=== PATIENT | male | born 1935 | race African-American/Black ===

== ENCOUNTER 2016-07-16 11:58 | Emergency (ER) | payer MEDICARE ==
[~2016-07-16] VITALS: Ht 172.7 cm; Wt 93.2 kg
[2016-07-16 12:22] LABS: GLUCOSE,POINT OF CARE 170 MG/DL (70-110)
[2016-07-16 12:52] LABS: BASOPHILS % (AUTO) 0.7 % (0.0-2.0); EOSINOPHILS % (AUTO) 6.9 % (1.0-6.0); HEMATOCRIT 34.6 % (41-53); HEMOGLOBIN 11.4 g/dL (13.5-17.5); LYMPHOCYTES # (AUTO) 2.1 K/uL (1.0-4.8); LYMPHOCYTES % (AUTO) 25.9 % (22.0-44.0); MEAN CORPUSCULAR HEMOGLOBIN 28.6 pg (26.0-34.0); MEAN CORPUSCULAR VOLUME 87 fL (80-100); MONOCYTES # (AUTO) 0.7 K/uL (0.1-1.0); MONOCYTES % (AUTO) 8.6 % (2.0-9.0); NEUTROPHILS # (AUTO) 4.8 K/uL (1.8-7.7); NEUTROPHILS % (AUTO) 57.9 % (40.0-70.0); PLATELET COUNT (AUTO) 186 K/uL (150-450); RED BLOOD CELL COUNT(AUTO) 3.99 MIL/uL (4.50-5.90); RED CELL DISTRIBUTION WIDTH 16.3 % (11.5-14.5); WHITE BLOOD COUNT (AUTO) 8.3 K/uL (4.5-11.0)
[2016-07-16 13:03] LABS: ANION GAP 10 mmol/L (8-16); CALCIUM, TOTAL 9.2 mg/dL (8.8-10.5); CARBON DIOXIDE 28 mmol/L (22-29); CHLORIDE 102 mmol/L (98-107); CREATININE 1.18 mg/dL (0.60-1.30); GLOMERULAR FILTR. RATE CALC > 60 mL/min (>60); POTASSIUM 3.9 mmol/L (3.5-5.1); SODIUM SERUM 140 mmol/L (136-145); UREA NITROGEN, BLOOD 14 mg/dL (7-18)
[2016-07-16 13:18] LABS: B-TYPE NATRIURETIC PEPTIDE 317 pg/mL (0-100)
[2016-07-16 13:24] LABS: ADD UA MICROSCOPIC NO; APPEARANCE,URINE CLEAR (CLEAR); GLUCOSE, URINE (UA) NEGATIVE (NEGATIVE); KETONES,URINE NEGATIVE (NEGATIVE); LEUKOCYTE ESTERASE ,URINE NEGATIVE (NEGATIVE); OCCULT BLOOD,URINE NEGATIVE (NEGATIVE); PROTEIN,URINE NEGATIVE (NEGATIVE)
[2016-07-16 13:33] LABS: ALANINE AMINOTRANSFERASE 33 U/L (12-78); ALBUMIN 3.3 g/dL (3.4-5.0); ASPARTATE AMINOTRANSFERASE 20 U/L (15-37); BILIRUBIN,TOTAL 0.3 mg/dL (0.1-1.0); CREATINE KINASE MB 0.9 ng/mL (0-5); CREATINE KINASE, TOTAL 87 U/L (39-308)
[2016-07-16 15:53] VITALS: BP 139/90
== END 2016-07-16 16:07 | disposition home or self-care (01) ==
LOC: EMS 12:00
DX: M62.81 Muscle weakness (generalized) (principal); D64.9 Anemia, unspecified; M48.06 Spinal stenosis, lumbar region; M47.896 Other spondylosis, lumbar region; E11.9 Type 2 diabetes mellitus without complications; I10 Essential (primary) hypertension
CPT/HCPCS: 70450; 72131; 82962; 93005; 99291

== ENCOUNTER 2016-11-30 00:01 | Inpatient (IN) | payer MEDICARE ==
[~2016-11-30] VITALS: Ht 175.3 cm; Wt 94.1 kg
[2016-11-30 00:20] LABS: BASOPHILS % (AUTO) 1.1 % (0.0-2.0); EOSINOPHILS % (AUTO) 2.5 % (1.0-6.0); HEMATOCRIT 41.9 % (41-53); HEMOGLOBIN 14.1 g/dL (13.5-17.5); LYMPHOCYTES # (AUTO) 10.2 K/uL (1.0-4.8); LYMPHOCYTES % (AUTO) 58.8 % (22.0-44.0); MEAN CORPUSCULAR HEMOGLOBIN 29.6 pg (26.0-34.0); MEAN CORPUSCULAR HGB CONC 33.8 G/dL (31.0-37.0); MEAN CORPUSCULAR VOLUME 88 fL (80-100); MONOCYTES % (AUTO) 5.8 % (2.0-9.0); NEUTROPHILS # (AUTO) 5.5 K/uL (1.8-7.7); NEUTROPHILS % (AUTO) 31.8 % (40.0-70.0); PLATELET COUNT (AUTO) 220 K/uL (150-450); RED BLOOD CELL COUNT(AUTO) 4.78 MIL/uL (4.50-5.90); RED CELL DISTRIBUTION WIDTH 15.5 % (11.5-14.5); WHITE BLOOD COUNT (AUTO) 17.3 K/uL (4.5-11.0)
[2016-11-30 00:31] LABS: ANION GAP 12 mmol/L (8-16); CALCIUM, TOTAL 9.1 mg/dL (8.8-10.5); CARBON DIOXIDE 24 mmol/L (22-29); CHLORIDE 101 mmol/L (98-107); CREATININE 1.49 mg/dL (0.60-1.30); GLOMERULAR FILTR. RATE CALC 55 mL/min (>60); POTASSIUM 3.4 mmol/L (3.5-5.1); SODIUM SERUM 137 mmol/L (136-145); UREA NITROGEN, BLOOD 12 mg/dL (7-18)
[2016-11-30 00:33] LABS: PROTHROMBIN TIME 10.5 SEC (9.4-11.6)
[2016-11-30 00:42] LABS: LACTIC ACID 3.4 mmol/L (0.4-2.0)
[2016-11-30 00:44] LABS: B-TYPE NATRIURETIC PEPTIDE 508 pg/mL (0-100)
[2016-11-30 00:55] LABS: ALBUMIN 3.6 g/dL (3.4-5.0); BILIRUBIN,TOTAL 0.6 mg/dL (0.1-1.0); CREATINE KINASE MB 2.1 ng/mL (0-5); CREATINE KINASE, TOTAL 117 U/L (39-308)
[2016-11-30] MEDS ORDERED: 0.9% SODIUM CHLORIDE 5 ML NEB SOLUTION NEB ONE (01:09)
[2016-11-30] MEDS ORDERED: IPRATROPIUM BROMIDE 0.5 MG/2.5 ML NEB SOLUTION NEB ONE (01:15)
[2016-11-30] MEDS ORDERED: POTASSIUM CHLORIDE 10% 40 MEQ/30 ML LIQUID UDCUP PO ONE (01:15)
[2016-11-30] MEDS ORDERED: FUROSEMIDE 40 MG/4 ML VIAL IVP ONE (01:15)
[2016-11-30] MEDS ORDERED: ASPIRIN 325 MG TABLET PO ONE (01:15)
[2016-11-30] MEDS ORDERED: ALBUTEROL SULFATE 5 MG/ML 20 ML NEB SOLN [BULK] NEB ONE (01:15)
[2016-11-30] MEDS ORDERED: INSULIN REGULAR, HUMAN 100 UNITS/ML IVP ONE (01:15)
[2016-11-30] MEDS ORDERED: SITA50 PO (01:22)
[2016-11-30] MEDS ORDERED: ATOR40TA28 PO (01:22)
[2016-11-30] MEDS ORDERED: METF500T4 PO (01:22)
[2016-11-30] MEDS ORDERED: HYDR25TA PO (01:22)
[2016-11-30] MEDS ORDERED: AMLO-511 PO (01:22)
[2016-11-30] MEDS ORDERED: MULT-1192 PO (01:22)
[2016-11-30] MEDS ORDERED: CARV6 PO (01:22)
[2016-11-30] MEDS ORDERED: ASPI81 PO (01:22)
[2016-11-30] MEDS ORDERED: LOSA50TA37 PO (01:22)
[2016-11-30] MEDS ORDERED: FERR-89 PO (01:22)
[2016-11-30] MEDS ORDERED: NIFE30TA98 PO (01:22)
[2016-11-30 01:43] LABS: ALANINE AMINOTRANSFERASE 24 U/L (12-78); ASPARTATE AMINOTRANSFERASE 25 U/L (15-37)
[2016-11-30 01:50] LABS: APPEARANCE,URINE CLEAR (CLEAR); GLUCOSE, URINE (UA) >=1000 mg/dL (NEGATIVE); KETONES,URINE NEGATIVE (NEGATIVE); LEUKOCYTE ESTERASE ,URINE NEGATIVE (NEGATIVE); OCCULT BLOOD,URINE TRACE (NEGATIVE); PH,URINE 5.5 (5.0-8.0); PROTEIN,URINE SEE CONFIRM (NEGATIVE)
[2016-11-30 01:54] LABS: ADD UA MICROSCOPIC YES
[2016-11-30 02:15] LABS: REFLEX LACTIC ACID? YES YES
[2016-11-30] MEDS ORDERED: 0.9% SODIUM CHLORIDE 10 ML SYRINGE IVP PRN ×2 (02:30→12:15)
[2016-11-30] MEDS ORDERED: ACETAMINOPHEN 325 MG TABLET PO PRN ×2 (02:30→12:15)
[2016-11-30] MEDS ORDERED: ONDANSETRON HCL 4 MG/2 ML VIAL IVP PRN ×2 (02:30→12:15)
[2016-11-30 02:33] LABS: RBC,URINE 0-2 /HPF (0-2); SULFOSALICYLIC ACID,URINE 1+ (Negative); WBC,URINE 0-2 /HPF (0-5)
[2016-11-30 03:14] VITALS: BP 150/72
[2016-11-30] MEDS ORDERED: PNEUMOCOCCAL VACCINE POLYVALENT 0.5 ML VIAL [PPSV23] IM ONE (04:00)
[2016-11-30 07:44] VITALS: BP 144/77
[2016-11-30] MEDS ORDERED: OXYGEN THERAPY IH SCH (08:00)
[2016-11-30 11:34] VITALS: BP 155/94
[2016-11-30] MEDS ORDERED: SitaGLIPtin PHOSPHATE 50 MG TABLET PO SCH (12:00)
[2016-11-30] MEDS ORDERED: NIFEdipine 30 MG ER TABLET PO SCH (12:00)
[2016-11-30] MEDS ORDERED: HYDROCHLOROTHIAZIDE 25 MG TABLET PO SCH (12:00)
[2016-11-30] MEDS ORDERED: MULTIVITAMINS, THERAPEUTIC TABLET PO SCH (12:00)
[2016-11-30] MEDS ORDERED: AmLODIPine BESYLATE 5 MG TABLET PO SCH (12:00)
[2016-11-30] MEDS ORDERED: LOSARTAN POTASSIUM 50 MG TABLET PO SCH (12:00)
[2016-11-30] MEDS ORDERED: ASPIRIN 81 MG CHEWABLE TABLET PO SCH (12:00)
[2016-11-30] MEDS ORDERED: CARVEDILOL 6.25 MG TABLET PO SCH (12:00)
[2016-11-30] MEDS ORDERED: FUROSEMIDE 40 MG/4 ML VIAL IVP SCH (12:15)
[2016-11-30] MEDS ORDERED: MAGNESIUM HYDROXIDE SUSPENSION 30 ML UDCUP PO PRN (12:15)
[2016-11-30] MEDS ORDERED: DOCUSATE SODIUM 100 MG CAPSULE PO SCH (12:15)
[2016-11-30] MEDS ORDERED: OxyCODONE HCL/ACETAMINOPHEN 5-325 MG TABLET PO PRN ×2 (12:15)
[2016-11-30] MEDS ORDERED: CefTRIAXone 1 GM/DEXTROSE 50 ML IV SCH (13:00)
[2016-11-30 13:21] VITALS: BP 137/72
[2016-11-30] MEDS ORDERED: SODIUM CHLORIDE 0.9% 100 ML ONE (13:24)
[2016-11-30 14:49] VITALS: BP 158/92
[2016-11-30] MEDS ORDERED: FURO40I IV (15:21)
[2016-11-30 15:28] VITALS: BP 159/90
[2016-11-30] MEDS ORDERED: CEFTR1IV IV (15:28)
[2016-11-30] MEDS ORDERED: PANT40I IV (15:28)
[2016-11-30] MEDS ORDERED: MetFORMIN HCL 500 MG TABLET PO SCH (18:00)
[2016-11-30] MEDS ORDERED: FERROUS SULFATE 325 MG EC TABLET PO SCH (18:00)
[2016-11-30] MEDS ORDERED: ATORVASTATIN CALCIUM 40 MG TABLET PO SCH (21:00)
[2016-12-01] MEDS ORDERED: PANTOPRAZOLE SODIUM 40 MG/VIAL IVP SCH (09:00)
[2016-12-01 13:57] LABS: GLUCOSE,POINT OF CARE 305 MG/DL (70-110)
[2016-12-01 13:57] LABS: GLUCOSE,POINT OF CARE 277 MG/DL (70-110)
== END 2016-11-30 15:25 | disposition short-term general hospital (02) | DRG 195 ==
LOC: EMS 00:02 → 5N 02:45
PROVIDERS: ADMIT Internal Medicine; ATTEND Internal Medicine
PROC: 5A09357 Assistance with Respiratory Ventilation, Less than 24 Consecutive Hours, Continuous Positive Airway Pressure (ICD-10-PCS; principal; 2016-11-30)
DX: J18.9 Pneumonia, unspecified organism (principal); I11.0 Hypertensive heart disease with heart failure; E11.9 Type 2 diabetes mellitus without complications; I50.9 Heart failure, unspecified; E87.6 Hypokalemia; R09.02 Hypoxemia; Z82.49 Family history of ischemic heart disease and other diseases of the circulatory system; Z86.73 Personal history of transient ischemic attack (TIA), and cerebral infarction without residual deficits; Z83.3 Family history of diabetes mellitus; Z79.84 Long term (current) use of oral hypoglycemic drugs; Z79.82 Long term (current) use of aspirin; Z91.14 Patient's other noncompliance with medication regimen
CPT/HCPCS: 82962; 83605; 87040; 90471; 93005; 94640; 94660; 96374; 99291; J0696; J1940; J7050

== ENCOUNTER 2017-02-23 00:08 | Inpatient (IN) | payer MEDICARE ==
[~2017-02-23] VITALS: Ht 182.9 cm; Wt 90.0 kg
[~2017-02-23 00:08] MED LIST: AMLO-511 PO; ASPI81 PO; ATOR40TA28 PO; CARV6 PO; CEFTR1IV IV; FERR-89 PO; FURO40I IV; HYDR25TA PO; LOSA50TA37 PO; METF500T4 PO; MULT-1192 PO; NIFE30TA98 PO; PANT40I IV; SITA50 PO
[2017-02-23] MEDS ORDERED: FUROSEMIDE 40 MG/4 ML VIAL IVP ONE ×2 (00:15→09:00)
[2017-02-23] MEDS ORDERED: NITROGLYCERIN 100 MG in DEXTROSE 5%-WATER 230 ML IV PRN (00:15)
[2017-02-23] MEDS ORDERED: NITROGLYCERIN 0.4 MG SUBLINGUAL TABLET #25 SL ONE (00:15)
[2017-02-23] MEDS ORDERED: NITROGLYCERIN 50 MG/D5% WATER 250 ML IV PRN (00:30)
[2017-02-23 00:51] LABS: HEMATOCRIT 40.1 % (41-53); HEMOGLOBIN 13.4 g/dL (13.5-17.5); MEAN CORPUSCULAR HEMOGLOBIN 29.1 pg (26.0-34.0); MEAN CORPUSCULAR HGB CONC 33.3 G/dL (31.0-37.0); MEAN CORPUSCULAR VOLUME 87 fL (80-100); PLATELET COUNT (AUTO) 214 K/uL (150-450); RED BLOOD CELL COUNT(AUTO) 4.59 MIL/uL (4.50-5.90); RED CELL DISTRIBUTION WIDTH 17.3 % (11.5-14.5)
[2017-02-23 01:06] LABS: PROTHROMBIN TIME 10.7 SEC (9.4-11.6)
[2017-02-23 01:17] LABS: LYMPHOCYTES % (MANUAL) 52 % (22-44); MONOCYTES % (MANUAL) 4 % (2-9); PLATELET MORPHOLOGY COMMENT GIANT PLTS PRESENT; SEGMENTED NEUTROPHILS % 44 % (40-70)
[2017-02-23 01:26] LABS: LACTIC ACID 5.6 mmol/L (0.4-2.0)
[2017-02-23 01:40] LABS: SODIUM SERUM 135 mmol/L (136-145)
[2017-02-23 01:41] LABS: ALKALINE PHOSPHATASE 164 U/L (46-116); ANION GAP 16 mmol/L (8-16); ASPARTATE AMINOTRANSFERASE 29 U/L (15-37); BILIRUBIN,TOTAL 0.3 mg/dL (0.1-1.0); CALCIUM, TOTAL 8.7 mg/dL (8.8-10.5); CARBON DIOXIDE 22 mmol/L (22-29); CHLORIDE 97 mmol/L (98-107); CREATININE 1.57 mg/dL (0.60-1.30); GLOMERULAR FILTR. RATE CALC 52 mL/min (>60); UREA NITROGEN, BLOOD 13 mg/dL (7-18)
[2017-02-23 01:42] LABS: ALANINE AMINOTRANSFERASE 33 U/L (12-78); ALBUMIN 3.3 g/dL (3.4-5.0); CREATINE KINASE, TOTAL 91 U/L (39-308); TOTAL PROTEIN, SERUM 8.6 g/dL (6.4-8.2)
[2017-02-23 01:43] LABS: GLUCOSE,RANDOM 462 mg/dL (70-110); POTASSIUM 2.7 mmol/L (3.5-5.1)
[2017-02-23] MEDS ORDERED: CefTRIAXone SODIUM 2 GM in DEXTROSE 5%-WATER 50 ML IV ONE (01:45)
[2017-02-23 02:46] LABS: APPEARANCE,URINE CLEAR (CLEAR); BILIRUBIN,URINE NEGATIVE (NEGATIVE); GLUCOSE, URINE (UA) >=1000 mg/dL (NEGATIVE); KETONES,URINE NEGATIVE (NEGATIVE); LEUKOCYTE ESTERASE ,URINE NEGATIVE (NEGATIVE); NITRATE,URINE NEGATIVE (NEGATIVE); OCCULT BLOOD,URINE NEGATIVE (NEGATIVE); PROTEIN,URINE TRACE (NEGATIVE); UROBILINOGEN,URINE 0.2 mg/dL (<=1.0)
[2017-02-23 02:56] LABS: BACTERIA,URINE None Seen /HPF (None Seen); RBC,URINE None Seen /HPF (0-2); WBC,URINE None Seen /HPF (0-5)
[2017-02-23] MEDS ORDERED: POTASSIUM CHLORIDE 20 MEQ ER TABLET PO ONE (03:15)
[2017-02-23] MEDS ORDERED: INSULIN REGULAR, HUMAN 100 UNITS/ML IVP ONE (03:15)
[2017-02-23 03:42] LABS: GLUCOSE,POINT OF CARE 387 MG/DL (70-110)
[2017-02-23] MEDS ORDERED: ALBUTEROL SULFATE 2.5 MG/0.5 ML NEB SOLUTION NEB PRN ×2 (04:00→10:30)
[2017-02-23] MEDS ORDERED: BISACODYL 10 MG RECTAL RECTAL SUPPOSITORY PR PRN ×2 (04:00→10:30)
[2017-02-23] MEDS ORDERED: IPRATROPIUM BROMIDE 0.5 MG/2.5 ML NEB SOLUTION NEB PRN (04:00)
[2017-02-23] MEDS ORDERED: ONDANSETRON HCL 4 MG/2 ML VIAL IVP PRN (04:00)
[2017-02-23] MEDS ORDERED: NITROGLYCERIN 2% (1 GM=INCH) PACKET TP ONE (04:00)
[2017-02-23] MEDS ORDERED: MORPHINE SULFATE 4 MG/ML SYRINGE IVP PRN (04:00)
[2017-02-23] MEDS ORDERED: ACETAMINOPHEN 325 MG TABLET PO PRN ×2 (04:00→10:30)
[2017-02-23] MEDS ORDERED: ZOLPIDEM TARTRATE 5 MG TABLET PO PRN (04:00)
[2017-02-23] MEDS ORDERED: HYDROCODONE/ACETAMINOPHEN 5-325 MG TABLET PO PRN (04:00)
[2017-02-23 05:27] LABS: GLUCOSE,POINT OF CARE 377 MG/DL (70-110)
[2017-02-23 05:51] VITALS: BP 131/76
[2017-02-23] MEDS ORDERED: POTASSIUM CHL 10 MEQ/WATER 50 ML IV PRN (06:15)
[2017-02-23 07:13] VITALS: BP 157/92
[2017-02-23 07:47] LABS: BASOPHILS # (AUTO) 0.02 K/uL (0.00-0.20); BASOPHILS % (AUTO) 0.2 % (0.0-2.0); EOSINOPHILS # (AUTO) 0.02 K/uL (0.00-0.70); EOSINOPHILS % (AUTO) 0.17 % (1.0-6.0); HEMATOCRIT 34.3 % (41-53); HEMOGLOBIN 11.4 g/dL (13.5-17.5); LYMPHOCYTES # (AUTO) 2.3 K/uL (1.0-4.8); LYMPHOCYTES % (AUTO) 23.9 % (22.0-44.0); MEAN CORPUSCULAR HEMOGLOBIN 28.7 pg (26.0-34.0); MEAN CORPUSCULAR HGB CONC 33.3 G/dL (31.0-37.0); MEAN CORPUSCULAR VOLUME 86 fL (80-100); MONOCYTES # (AUTO) 0.7 K/uL (0.1-1.0); MONOCYTES % (AUTO) 7.4 % (2.0-9.0); NEUTROPHILS # (AUTO) 6.6 K/uL (1.8-7.7); NEUTROPHILS % (AUTO) 68.3 % (40.0-70.0); PLATELET COUNT (AUTO) 179 K/uL (150-450); RED BLOOD CELL COUNT(AUTO) 3.98 MIL/uL (4.50-5.90); RED CELL DISTRIBUTION WIDTH 17.1 % (11.5-14.5)
[2017-02-23 07:59] LABS: BILIRUBIN,TOTAL 0.3 mg/dL (0.1-1.0); CALCIUM, TOTAL 8.9 mg/dL (8.8-10.5); CREATININE 1.43 mg/dL (0.60-1.30); POTASSIUM 3.8 mmol/L (3.5-5.1); TOTAL PROTEIN, SERUM 7.6 g/dL (6.4-8.2)
[2017-02-23] MEDS ORDERED: MetFORMIN HCL 500 MG TABLET PO SCH (08:00)
[2017-02-23] MEDS ORDERED: PANTOPRAZOLE SODIUM 40 MG/VIAL IVP SCH (09:00)
[2017-02-23] MEDS ORDERED: AmLODIPine BESYLATE 5 MG TABLET PO SCH (09:00)
[2017-02-23] MEDS ORDERED: LOSARTAN POTASSIUM 50 MG TABLET PO SCH (09:00)
[2017-02-23] MEDS ORDERED: CARVEDILOL 6.25 MG TABLET PO SCH (09:00)
[2017-02-23] MEDS ORDERED: ENOXAPARIN SODIUM 40 MG/0.4 ML PF SYRINGE SQ SCH (09:00)
[2017-02-23] MEDS ORDERED: ASPIRIN 81 MG EC TABLET PO SCH (09:00)
[2017-02-23] MEDS ORDERED: DOCUSATE SODIUM 100 MG CAPSULE PO SCH (09:00)
[2017-02-23] MEDS ORDERED: HYDROCHLOROTHIAZIDE 25 MG TABLET PO SCH (09:00)
[2017-02-23] MEDS ORDERED: NIFEdipine 30 MG ER TABLET PO SCH (09:00)
[2017-02-23] MEDS ORDERED: DEXTROSE 50%-WATER 25 GM/50 ML SYRINGE IVP PRN ×2 (10:30)
[2017-02-23] MEDS ORDERED: MORPHINE SULFATE 2 MG/ML SYRINGE IVP PRN (10:30)
[2017-02-23] MEDS ORDERED: HEPARIN SODIUM,PORCINE 5,000 UNITS/ML VIAL IVP PRN ×2 (10:30)
[2017-02-23] MEDS ORDERED: MAGNESIUM HYDROXIDE SUSPENSION 30 ML UDCUP PO PRN (10:30)
[2017-02-23] MEDS ORDERED: OxyCODONE HCL/ACETAMINOPHEN 5-325 MG TABLET PO PRN (10:30)
[2017-02-23] MEDS ORDERED: INSULIN ASPART 100 UNITS/ML SQ PRN (10:30)
[2017-02-23] MEDS ORDERED: HEPARIN SODIUM,PORCINE 5,000 UNITS/ML VIAL IVP ONE (10:30)
[2017-02-23] MEDS ORDERED: ATORVASTATIN CALCIUM 40 MG TABLET PO SCH (10:45)
[2017-02-23 11:11] LABS: INR 1.1 (0.9-1.1); PROTHROMBIN TIME 11.2 SEC (9.4-11.6)
[2017-02-23 11:50] VITALS: BP 145/84
[2017-02-23] MEDS ORDERED: NITROGLYCERIN 2% (1 GM=INCH) PACKET TP SCH (12:00)
[2017-02-23] MEDS: ATORVASTATIN CALCIUM 40 MG TABLET PO SCH (12:09)
[2017-02-23] MEDS: PANTOPRAZOLE SODIUM 40 MG DR TABLET PO SCH (12:09)
[2017-02-23] MEDS: HEPARIN SODIUM 25000 UNITS/D5W 250 ML IV PRN (12:33)
[2017-02-23 14:18] LABS: GLUCOMETER DEV NAME(LOC) 5N 2R; GLUCOSE,POINT OF CARE 299 MG/DL (70-110)
[2017-02-23] MEDS ORDERED: CefTRIAXone SODIUM 1 GM/VIAL IV ONE (16:00)
[2017-02-23 16:44] VITALS: BP 131/70
[2017-02-23] MEDS: INSULIN ASPART 100 UNITS/ML SQ PRN ×2 (18:03→21:06)
[2017-02-23 19:57] VITALS: BP 104/49
[2017-02-23 20:02] LABS: GLUCOMETER DEV NAME(LOC) 5N 2R; GLUCOSE,POINT OF CARE 198 MG/DL (70-110)
[2017-02-23] MEDS: DOCUSATE SODIUM 100 MG CAPSULE PO SCH (20:04)
[2017-02-24] VITALS (15 sets, daily range): BP systolic 130–165; BP diastolic 66–94
[2017-02-24 01:23] LABS: GLUCOMETER DEV NAME(LOC) 5N 2R; GLUCOSE,POINT OF CARE 249 MG/DL (70-110)
[2017-02-24 06:32] LABS: BASOPHILS % (AUTO) 0.4 % (0.0-2.0); EOSINOPHILS % (AUTO) 2.4 % (1.0-6.0); HEMATOCRIT 33.5 % (41-53); HEMOGLOBIN 11.4 g/dL (13.5-17.5); LYMPHOCYTES # (AUTO) 3.7 K/uL (1.0-4.8); MEAN CORPUSCULAR HEMOGLOBIN 29.6 pg (26.0-34.0); MEAN CORPUSCULAR VOLUME 87 fL (80-100); MONOCYTES # (AUTO) 0.8 K/uL (0.1-1.0); MONOCYTES % (AUTO) 8.3 % (2.0-9.0); NEUTROPHILS % (AUTO) 50.9 % (40.0-70.0); PLATELET COUNT (AUTO) 183 K/uL (150-450); RED BLOOD CELL COUNT(AUTO) 3.86 MIL/uL (4.50-5.90); RED CELL DISTRIBUTION WIDTH 17.5 % (11.5-14.5)
[2017-02-24 06:39] LABS: GLUCOMETER DEV NAME(LOC) 5N 1M; GLUCOSE,POINT OF CARE 212 MG/DL (70-110)
[2017-02-24] MEDS ORDERED: NITROGLYCERIN 50 MG/D5% WATER 250 ML ONE (08:40)
[2017-02-24] MEDS ORDERED: HEPARIN SODIUM,PORCINE 1,000 UNITS/ML 10 ML VIAL ONE (08:40)
[2017-02-24] MEDS ORDERED: VERAPAMIL HCL 2.5 MG/ML 2 ML VIAL ONE (08:40)
[2017-02-24] MEDS ORDERED: LIDOCAINE HCL/PF 1% 30 ML VIAL ONE (08:41)
[2017-02-24] MEDS ORDERED: IOHEXOL 300 MG/ML 150 ML VIAL ONE (08:41)
[2017-02-24] MEDS ORDERED: 0.9% SODIUM CHLORIDE 10 ML SYRINGE IVP ONE (08:41)
[2017-02-24] MEDS ORDERED: HEPARIN SODIUM 1000 UNITS/NS 1,000 ML ONE (08:41)
[2017-02-24] MEDS ORDERED: FentaNYL CITRATE-PF 100 MCG/2 ML VIAL ONE (09:09)
[2017-02-24] MEDS ORDERED: MIDAZOLAM HCL 2 MG/2 ML VIAL ONE (09:09)
[2017-02-24] MEDS ORDERED: SODIUM CHLORIDE 0.9% 500 ML IV ONE (09:27)
[2017-02-24] MEDS ORDERED: HEPARIN SODIUM 1000 UNITS/NS 1,000 ML IARTER ONE (09:27)
[2017-02-24] MEDS ORDERED: MIDAZOLAM HCL 2 MG/2 ML VIAL IVP ONE ×2 (09:30)
[2017-02-24] MEDS ORDERED: NITROGLYCERIN/D5W 50 MG/250 ML IV BOTTLE IARTER ONE (09:30)
[2017-02-24] MEDS ORDERED: LIDOCAINE 1% 30 ML/SOD BICARB 8.4% 4 ML SQ ONE (09:30)
[2017-02-24] MEDS ORDERED: IOHEXOL 300 MG/ML 150 ML VIAL IARTER ONE (09:30)
[2017-02-24] MEDS ORDERED: VERAPAMIL HCL 2.5 MG/ML 2 ML VIAL IARTER ONE (09:30)
[2017-02-24] MEDS ORDERED: FentaNYL CITRATE-PF 100 MCG/2 ML VIAL IVP ONE ×2 (09:30)
[2017-02-24 09:38] LABS: PLATELET MORPHOLOGY COMMENT GIANT PLTS PRESENT
[2017-02-24] MEDS ORDERED: HEPARIN SODIUM,PORCINE 5,000 UNITS/ML VIAL IVP ONE (09:45)
[2017-02-24] MEDS ORDERED: SODIUM CHLORIDE 0.9% 1,000 ML IV SCH (11:00)
[2017-02-24] MEDS: PANTOPRAZOLE SODIUM 40 MG DR TABLET PO SCH (11:37)
[2017-02-24] MEDS: DOCUSATE SODIUM 100 MG CAPSULE PO SCH (11:37)
[2017-02-24] MEDS: ATORVASTATIN CALCIUM 40 MG TABLET PO SCH (11:38)
[2017-02-24] MEDS: INSULIN ASPART 100 UNITS/ML SQ PRN ×2 (12:50→17:53)
[2017-02-24] MEDS: HEPARIN SODIUM 25000 UNITS/D5W 250 ML IV PRN (14:46)
[2017-02-24] MEDS ORDERED: GlipiZIDE 5 MG TABLET PO SCH (17:30)
[2017-02-24] MEDS ORDERED: DSS100 PO (19:44)
[2017-02-24] MEDS ORDERED: ATOR40TA28 PO (19:44)
[2017-02-24] MEDS ORDERED: GLIP5 PO (19:45)
[2017-02-24] MEDS ORDERED: PANT40TA25 PO (19:45)
[2017-02-24] MEDS ORDERED: ACET-2247 PO (19:45)
[2017-02-24] MEDS ORDERED: BISA5TAB12 PO (19:46)
[2017-02-24] MEDS ORDERED: AUD NEB (19:46)
[2017-02-24] MEDS ORDERED: INSNOV SQ (19:47)
[2017-02-24] MEDS ORDERED: MOM30 PO (19:48)
[2017-02-24] MEDS ORDERED: OXYC-530 PO (19:49)
[2017-02-24] MEDS ORDERED: MORP1SYR2 IVP (19:49)
[2017-02-25 06:33] LABS: GLUCOMETER DEV NAME(LOC) 5N 1M; GLUCOSE,POINT OF CARE 229 MG/DL (70-110)
[2017-02-25 06:33] LABS: GLUCOMETER DEV NAME(LOC) 5N 1M; GLUCOSE,POINT OF CARE 200 MG/DL (70-110)
== END 2017-02-24 19:10 | disposition short-term general hospital (02) | DRG 281 ==
LOC: EMS 00:09 → 5N 03:29
PROVIDERS: ADMIT Internal Medicine; ATTEND Internal Medicine
PROC: 4A023N7 Measurement of Cardiac Sampling and Pressure, Left Heart, Percutaneous Approach (ICD-10-PCS; principal; 2017-02-24)
PROC: B2111ZZ Fluoroscopy of Multiple Coronary Arteries using Low Osmolar Contrast (ICD-10-PCS; 2017-02-24)
PROC: B2151ZZ Fluoroscopy of Left Heart using Low Osmolar Contrast (ICD-10-PCS; 2017-02-24)
DX: I21.4 Non-ST elevation (NSTEMI) myocardial infarction (principal); N17.9 Acute kidney failure, unspecified; E44.0 Moderate protein-calorie malnutrition; E11.65 Type 2 diabetes mellitus with hyperglycemia; I10 Essential (primary) hypertension; E78.5 Hyperlipidemia, unspecified; E66.9 Obesity, unspecified; I25.5 Ischemic cardiomyopathy; E87.6 Hypokalemia; I25.10 Atherosclerotic heart disease of native coronary artery without angina pectoris; N28.9 Disorder of kidney and ureter, unspecified; R09.02 Hypoxemia; Z79.4 Long term (current) use of insulin; Z82.49 Family history of ischemic heart disease and other diseases of the circulatory system; Z83.3 Family history of diabetes mellitus; Z91.19 Patient's noncompliance with other medical treatment and regimen
CPT/HCPCS: 82962; 83036; 83605; 87040; 93005; 93306; 94660; 96365; 96366; 96367; 96375; 99291; C9113; J0696; J1644; J1650; J1815; J1940; J2250; J3010; J3490; J7030; J7060; Q9967

== ENCOUNTER 2021-06-15 14:05 | Inpatient (IN) | payer MEDICARE ==
[~2021-06-15] VITALS: Ht 177.8 cm; Wt 80.5 kg
[~2021-06-15 14:05] MED LIST changes: -AMLO-511 PO; -ASPI81 PO; -ATOR40TA28 PO; -CARV6 PO; -CEFTR1IV IV; +FAMO-136 PO; -FERR-89 PO; -FURO40I IV; +GLIP5 PO; -HYDR25TA PO; +INSNOV SQ; +LOSA-382 PO; -LOSA50TA37 PO; -METF500T4 PO; -MULT-1192 PO; -NIFE30TA98 PO; -PANT40I IV; -SITA50 PO; +TAMS-1 PO; +TICA90TA PO
[2021-06-15 14:25] LABS: EOSINOPHILS % (AUTO) 0.1 % (1.0-6.0); HEMATOCRIT 37.9 % (41-53); HEMOGLOBIN 12.7 g/dL (13.5-17.5); LYMPHOCYTES # (AUTO) 2.2 K/uL (1.0-4.8); LYMPHOCYTES % (AUTO) 19.8 % (22.0-44.0); MEAN CORPUSCULAR HEMOGLOBIN 28.5 pg (26.0-34.0); MEAN CORPUSCULAR HGB CONC 33.5 G/dL (31.0-37.0); MEAN CORPUSCULAR VOLUME 85 fL (80-100); MONOCYTES # (AUTO) 0.9 K/uL (0.1-1.0); MONOCYTES % (AUTO) 7.9 % (2.0-9.0); NEUTROPHILS # (AUTO) 7.8 K/uL (1.8-7.7); NEUTROPHILS % (AUTO) 71.2 % (40.0-70.0); PLATELET COUNT (AUTO) 202 K/uL (150-450); RED BLOOD CELL COUNT(AUTO) 4.47 MIL/uL (4.50-5.90); RED CELL DISTRIBUTION WIDTH 17.4 % (11.5-14.5)
[2021-06-15] MEDS ORDERED: IOHEXOL 350 MG/ML 100 ML VIAL ONE (14:36)
[2021-06-15 14:38] LABS: INR 1.1 (0.9-1.1)
[2021-06-15 14:48] LABS: LACTIC ACID 2.7 mmol/L (0.4-2.0)
[2021-06-15 14:50] LABS: ANION GAP 15 mmol/L (8-16); CALCIUM, TOTAL 9.5 mg/dL (8.8-10.5); CARBON DIOXIDE 21 mmol/L (22-29); CHLORIDE 104 mmol/L (98-107); CREATININE 1.47 mg/dL (0.60-1.30); GLOMERULAR FILTR. RATE CALC 46 mL/min (>60); GLUCOSE,RANDOM 140 mg/dL (70-110); POTASSIUM 3.9 mmol/L (3.5-5.1); SODIUM SERUM 140 mmol/L (136-145); UREA NITROGEN, BLOOD 16 mg/dL (7-18)
[2021-06-15 14:50] LABS: COVID AG,FIA SOURCE NASAL SWAB
[2021-06-15 14:55] LABS: B-TYPE NATRIURETIC PEPTIDE 2970 pg/mL (0-100)
[2021-06-15] MEDS ORDERED: SODIUM CHLORIDE 0.9% 2,550 ML IV ONE (15:00)
[2021-06-15] MEDS ORDERED: ASPIRIN 81 MG CHEWABLE TABLET PO ONE (15:00)
[2021-06-15] MEDS ORDERED: ACETAMINOPHEN 1000 MG/ISO-OSM 100 ML IV ONE (15:00)
[2021-06-15] MEDS ORDERED: CefTRIAXone SODIUM 2 GM in DEXTROSE 5%-WATER 50 ML IV ONE (15:00)
[2021-06-15 15:09] LABS: AMPHET/METH SCREEN,URINE NEGATIVE (NEGATIVE); BARBITURATE SCREEN, URINE NEGATIVE (NEGATIVE); BENZODIAZEPINES SCREEN,URINE NEGATIVE (NEGATIVE); CANNABINOID SCREEN,URINE NEGATIVE (NEGATIVE); COCAINE SCREEN,URINE NEGATIVE (NEGATIVE); METHADONE SCREEN, URINE NEGATIVE (NEGATIVE); OPIATE SCREEN,URINE NEGATIVE (NEGATIVE); PHENCYCLIDINE SCREEN,URINE NEGATIVE (NEGATIVE)
[2021-06-15 15:12] LABS: INFLUENZA TYPE A NEGATIVE FOR TYPE A (NEGATIVE); INFLUENZA TYPE B NEGATIVE FOR TYPE B (NEGATIVE)
[2021-06-15 15:12] LABS: APPEARANCE,URINE CLEAR (CLEAR); BILIRUBIN,URINE NEGATIVE (NEGATIVE); GLUCOSE, URINE (UA) NEGATIVE (NEGATIVE); KETONES,URINE TRACE mg/dL (NEGATIVE); LEUKOCYTE ESTERASE ,URINE NEGATIVE (NEGATIVE); NITRATE,URINE NEGATIVE (NEGATIVE); OCCULT BLOOD,URINE TRACE (NEGATIVE); PH,URINE 5.5 (5.0-8.0); PROTEIN,URINE POS 1+ (NEGATIVE); UROBILINOGEN,URINE 0.2 mg/dL (<=1.0)
[2021-06-15 15:13] LABS: ALANINE AMINOTRANSFERASE 21 U/L (12-78); ALBUMIN 3.4 g/dL (3.4-5.0); ALKALINE PHOSPHATASE 115 U/L (46-116); ASPARTATE AMINOTRANSFERASE 28 U/L (15-37); CREATINE KINASE, TOTAL ONLY 450 U/L (39-308)
[2021-06-15 15:14] LABS: BACTERIA,URINE None Seen /HPF (None Seen); RBC,URINE 0-2 /HPF (0-2); WBC,URINE None Seen /HPF (0-5)
[2021-06-15] MEDS ORDERED: LISI-662 PO (15:40)
[2021-06-15] MEDS ORDERED: HEPARIN SODIUM,PORCINE 5,000 UNITS/ML VIAL IVP PRN ×2 (15:45)
[2021-06-15] MEDS ORDERED: HEPARIN SODIUM 25000 UNITS/D5W 250 ML IV PRN (15:45)
[2021-06-15] MEDS ORDERED: HEPARIN SODIUM,PORCINE 5,000 UNITS/ML VIAL IVP ONE ×2 (15:45)
[2021-06-15] MEDS ORDERED: AMLO-257 PO (15:51)
[2021-06-15] MEDS ORDERED: ASPI-1450 PO (15:51)
[2021-06-15] MEDS ORDERED: PRED5DRO17 OU (15:51)
[2021-06-15] MEDS ORDERED: ATOR20TA65 PO (15:51)
[2021-06-15] MEDS ORDERED: ACETAMINOPHEN 325 MG TABLET PO PRN (16:15)
[2021-06-15] MEDS ORDERED: ONDANSETRON HCL 4 MG/2 ML VIAL IVP PRN (16:15)
[2021-06-15] MEDS ORDERED: MORPHINE SULFATE 2 MG/ML SYRINGE IVP PRN (16:15)
[2021-06-15] MEDS: ATORVASTATIN CALCIUM 40 MG TABLET PO SCH (16:15)
[2021-06-15] MEDS: CARVEDILOL 12.5 MG TABLET PO SCH ×3 (16:15→20:55)
[2021-06-15] MEDS ORDERED: AZITHROMYCIN 500 MG/NS 250 ML IV ONE (18:30)
[2021-06-15 20:00] VITALS: BP 160/104
[2021-06-15] MEDS: FAMOTIDINE 20 MG TABLET PO SCH ×2 (20:04→20:55)
[2021-06-15] MEDS: TICAGRELOR 90 MG TABLET PO SCH ×2 (20:05→20:54)
[2021-06-15] MEDS: DOCUSATE SODIUM 100 MG CAPSULE PO SCH ×2 (20:05→20:55)
[2021-06-16] VITALS: BP 133/87
[2021-06-16] MEDS ORDERED: SODIUM CHLORIDE 0.9% 250 ML IV ONE (00:29)
[2021-06-16] MEDS: PIPERACILLIN/TAZO 3.375 GM/D5W 50 ML IV SCH ×4 (03:39→22:00)
[2021-06-16 04:00] VITALS: BP 131/78
[2021-06-16] MEDS ORDERED: HEPARIN SODIUM,PORCINE 5,000 UNITS/ML VIAL IVP PRN ×2 (06:15)
[2021-06-16 06:41] LABS: BASOPHILS % (AUTO) 0.9 % (0.0-2.0); EOSINOPHILS % (AUTO) 0.1 % (1.0-6.0); HEMATOCRIT 37.3 % (41-53); HEMOGLOBIN 12.6 g/dL (13.5-17.5); LYMPHOCYTES # (AUTO) 2.4 K/uL (1.0-4.8); LYMPHOCYTES % (AUTO) 20.3 % (22.0-44.0); MEAN CORPUSCULAR HEMOGLOBIN 28.8 pg (26.0-34.0); MEAN CORPUSCULAR HGB CONC 33.8 G/dL (31.0-37.0); MEAN CORPUSCULAR VOLUME 85 fL (80-100); MONOCYTES # (AUTO) 0.7 K/uL (0.1-1.0); MONOCYTES % (AUTO) 6.1 % (2.0-9.0); NEUTROPHILS # (AUTO) 8.5 K/uL (1.8-7.7); NEUTROPHILS % (AUTO) 72.6 % (40.0-70.0); PLATELET COUNT (AUTO) 161 K/uL (150-450); RED BLOOD CELL COUNT(AUTO) 4.38 MIL/uL (4.50-5.90); RED CELL DISTRIBUTION WIDTH 17.6 % (11.5-14.5)
[2021-06-16 07:04] LABS: CALCIUM, TOTAL 9.1 mg/dL (8.8-10.5); CREATININE 1.57 mg/dL (0.60-1.30); POTASSIUM 4.1 mmol/L (3.5-5.1)
[2021-06-16] MEDS: HEPARIN SODIUM 25000 UNITS/D5W 250 ML IV PRN (07:42)
[2021-06-16 08:00] VITALS: BP 123/83
[2021-06-16] MEDS ORDERED: DENTURE ADHESIVE 68 GM CREAM DT PRN (08:30)
[2021-06-16] MEDS ORDERED: INSULIN LISPRO 100 UNITS/ML SQ PRN (08:45)
[2021-06-16] MEDS ORDERED: DEXTROSE 50%-WATER 25 GM/50 ML SYRINGE IVP PRN (08:45)
[2021-06-16] MEDS: ETHYL ALCOHOL 62% ANTISEPTIC NASAL INHALANT 0.6 ML AMPUL NASAL SCH ×2 (08:50→21:30)
[2021-06-16] MEDS: ATORVASTATIN CALCIUM 40 MG TABLET PO SCH (08:51)
[2021-06-16] MEDS: ASPIRIN 81 MG DR TABLET PO SCH (08:51)
[2021-06-16] MEDS: CARVEDILOL 12.5 MG TABLET PO SCH ×2 (08:51→21:31)
[2021-06-16] MEDS: DOCUSATE SODIUM 100 MG CAPSULE PO SCH ×2 (08:51→21:32)
[2021-06-16] MEDS: TICAGRELOR 90 MG TABLET PO SCH ×2 (08:51→21:31)
[2021-06-16] MEDS: FAMOTIDINE 20 MG TABLET PO SCH ×2 (08:51→21:31)
[2021-06-16 12:00] VITALS: BP 119/77
[2021-06-16 12:26] LABS: GLUCOSE,POINT OF CARE 134 MG/DL (70-110)
[2021-06-16 16:00] VITALS: BP 114/58
[2021-06-16 18:06] LABS: GLUCOMETER DEV NAME(LOC) AHU.; GLUCOSE,POINT OF CARE 146 MG/DL (70-110)
[2021-06-16 20:00] VITALS: BP 138/70
[2021-06-17] VITALS: BP 105/76
[2021-06-17] MEDS: PIPERACILLIN/TAZO 3.375 GM/D5W 50 ML IV SCH ×4 (01:09→17:42)
[2021-06-17 04:00] VITALS: BP 144/85
[2021-06-17] MEDS ORDERED: SODIUM CHLORIDE 0.9% 250 ML IV ONE (06:05)
[2021-06-17] MEDS: TICAGRELOR 90 MG TABLET PO SCH ×3 (07:54→21:00)
[2021-06-17] MEDS: FAMOTIDINE 20 MG TABLET PO SCH ×3 (07:54→21:00)
[2021-06-17] MEDS: ATORVASTATIN CALCIUM 40 MG TABLET PO SCH (07:54)
[2021-06-17] MEDS: ASPIRIN 81 MG DR TABLET PO SCH (07:55)
[2021-06-17] MEDS: DOCUSATE SODIUM 100 MG CAPSULE PO SCH ×2 (07:56→20:09)
[2021-06-17] MEDS: CARVEDILOL 12.5 MG TABLET PO SCH ×3 (07:56→21:00)
[2021-06-17] MEDS: ETHYL ALCOHOL 62% ANTISEPTIC NASAL INHALANT 0.6 ML AMPUL NASAL SCH ×2 (07:57→20:10)
[2021-06-17 08:00] VITALS: BP 145/78
[2021-06-17 09:56] LABS: GLUCOMETER DEV NAME(LOC) AHU.; GLUCOSE,POINT OF CARE 101 MG/DL (70-110)
[2021-06-17 09:56] LABS: GLUCOMETER DEV NAME(LOC) AHU.; GLUCOSE,POINT OF CARE 118 MG/DL (70-110)
[2021-06-17 10:02] LABS: ALBUMIN 2.9 g/dL (3.4-5.0); BILIRUBIN,TOTAL 0.9 mg/dL (0.1-1.0); C-REACTIVE PROTEIN QUANT 13.9 mg/dL (0.00-0.30); CALCIUM, TOTAL 8.9 mg/dL (8.8-10.5); CREATININE 1.64 mg/dL (0.60-1.30); POTASSIUM 3.4 mmol/L (3.5-5.1); TOTAL PROTEIN, SERUM 8.1 g/dL (6.4-8.2)
[2021-06-17 12:00] VITALS: BP 139/92
[2021-06-17 13:46] LABS: GLUCOSE,POINT OF CARE 117 MG/DL (70-110)
[2021-06-17 16:00] VITALS: BP 115/51
[2021-06-17] MEDS: HEPARIN SODIUM 25000 UNITS/D5W 250 ML IV PRN (16:10)
[2021-06-17] MEDS ORDERED: LORazepam 2 MG/ML VIAL IVP ONE (19:45)
[2021-06-17 20:00] VITALS: BP 128/97
[2021-06-17] MEDS ORDERED: LORazepam 2 MG/ML VIAL IM PRN (20:30)
[2021-06-17] MEDS ORDERED: ALBUTEROL SULFATE 2.5 MG/0.5 ML NEB SOLUTION NEB SCH (22:00)
[2021-06-17] MEDS ORDERED: 0.9% SODIUM CHLORIDE 5 ML NEB SOLUTION NEB ONE (22:12)
[2021-06-17] MEDS: ALBUTEROL SULFATE 2.5 MG/0.5 ML NEB SOLUTION NEB PRN (22:14)
[2021-06-18] VITALS (11 sets, daily range): BP systolic 125–163; BP diastolic 60–85
[2021-06-18] MEDS: PIPERACILLIN/TAZO 3.375 GM/D5W 50 ML IV SCH ×4 (00:23→18:44)
[2021-06-18 02:35] LABS: GLUCOMETER DEV NAME(LOC) AHU.; GLUCOSE,POINT OF CARE 115 MG/DL (70-110)
[2021-06-18 05:18] LABS: C-REACTIVE PROTEIN QUANT 11.15 mg/dL (0.00-0.30); CALCIUM, TOTAL 9.3 mg/dL (8.8-10.5); CREATININE 1.67 mg/dL (0.60-1.30); POTASSIUM 3.2 mmol/L (3.5-5.1)
[2021-06-18] MEDS ORDERED: SODIUM CHLORIDE 0.9% 250 ML IV ONE (05:33)
[2021-06-18] MEDS: DOCUSATE SODIUM 100 MG CAPSULE PO SCH ×2 (09:00→20:14)
[2021-06-18] MEDS ORDERED: IOHEXOL 300 MG/ML 50 ML VIAL ONE (09:54)
[2021-06-18] MEDS ORDERED: LIDOCAINE/PF 1% 30 ML VIAL ONE (09:54)
[2021-06-18] MEDS ORDERED: SODIUM BICARBONATE 50 MEQ/50 ML VIAL ONE (09:54)
[2021-06-18] MEDS ORDERED: IOHEXOL 300 MG/ML 100 ML VIAL ONE (09:55)
[2021-06-18] MEDS ORDERED: HEPARIN SODIUM 1000 UNITS/NS 1,000 ML ONE (09:55)
[2021-06-18] MEDS ORDERED: IOHEXOL 300 MG/ML 150 ML VIAL ONE ×2 (09:55→11:46)
[2021-06-18] MEDS: ATORVASTATIN CALCIUM 40 MG TABLET PO SCH (09:56)
[2021-06-18] MEDS: TICAGRELOR 90 MG TABLET PO SCH ×2 (09:57→20:13)
[2021-06-18] MEDS: CARVEDILOL 12.5 MG TABLET PO SCH ×2 (09:57→20:13)
[2021-06-18] MEDS ORDERED: NITROGLYCERIN 50 MG/D5% WATER 0 ML ONE (09:58)
[2021-06-18] MEDS ORDERED: VERAPAMIL HCL 2.5 MG/ML 2 ML VIAL ONE (09:58)
[2021-06-18] MEDS: ETHYL ALCOHOL 62% ANTISEPTIC NASAL INHALANT 0.6 ML AMPUL NASAL SCH ×2 (09:58→20:13)
[2021-06-18] MEDS: ASPIRIN 81 MG DR TABLET PO SCH (09:58)
[2021-06-18] MEDS: FAMOTIDINE 20 MG TABLET PO SCH (09:59)
[2021-06-18] MEDS: ALBUTEROL SULFATE 2.5 MG/0.5 ML NEB SOLUTION NEB PRN (10:04)
[2021-06-18] MEDS ORDERED: MIDAZOLAM HCL 2 MG/2 ML VIAL ONE (11:18)
[2021-06-18] MEDS ORDERED: FentaNYL CITRATE PF 100 MCG/2 ML VIAL ONE ×2 (11:18→11:46)
[2021-06-18] MEDS ORDERED: SODIUM CHLORIDE 0.9% 500 ML IV ONE (11:30)
[2021-06-18] MEDS ORDERED: FentaNYL CITRATE PF 100 MCG/2 ML VIAL IVP ONE ×2 (11:30→12:15)
[2021-06-18] MEDS ORDERED: HEPARIN SODIUM 1000 UNITS/NS 1,000 ML IARTER ONE (11:30)
[2021-06-18] MEDS ORDERED: LIDOCAINE 1% 30 ML/SOD BICARB 8.4% 4 ML SQ ONE (11:30)
[2021-06-18] MEDS ORDERED: IOHEXOL 300 MG/ML 150 ML VIAL IARTER ONE (11:30)
[2021-06-18] MEDS ORDERED: PIPERACILLIN SODIUM/TAZOBACTAM 2.25 GM in DEXTROSE 5%-WATER 50 ML IV SCH (12:00)
[2021-06-18] MEDS ORDERED: HEPARIN SODIUM,PORCINE 5,000 UNITS/ML VIAL IVP ONE (12:15)
[2021-06-18 21:06] LABS: GLUCOSE,POINT OF CARE 116 MG/DL (70-110)
[2021-06-18 21:06] LABS: GLUCOSE,POINT OF CARE 87 MG/DL (70-110)
[2021-06-18 21:06] LABS: GLUCOSE,POINT OF CARE 126 MG/DL (70-110)
[2021-06-18] MEDS: POTASSIUM CHL 10 MEQ/WATER 50 ML IV SCH ×3 (21:12→23:41)
[2021-06-19] VITALS: BP 138/64
[2021-06-19] MEDS: PIPERACILLIN/TAZO 3.375 GM/D5W 50 ML IV SCH ×3 (00:32→12:15)
[2021-06-19] MEDS: POTASSIUM CHL 10 MEQ/WATER 50 ML IV SCH (00:46)
[2021-06-19] MEDS: LORazepam 2 MG/ML VIAL IVP PRN ×2 (02:07→23:44)
[2021-06-19 04:00] VITALS: BP 159/97
[2021-06-19 05:30] LABS: BASOPHILS % (AUTO) 0.6 % (0.0-2.0); EOSINOPHILS % (AUTO) 0.6 % (1.0-6.0); HEMATOCRIT 31.7 % (41-53); HEMOGLOBIN 10.6 g/dL (13.5-17.5); LYMPHOCYTES # (AUTO) 1.4 K/uL (1.0-4.8); LYMPHOCYTES % (AUTO) 17.2 % (22.0-44.0); MEAN CORPUSCULAR HEMOGLOBIN 28.4 pg (26.0-34.0); MEAN CORPUSCULAR HGB CONC 33.4 G/dL (31.0-37.0); MEAN CORPUSCULAR VOLUME 85 fL (80-100); MONOCYTES # (AUTO) 0.7 K/uL (0.1-1.0); MONOCYTES % (AUTO) 8.7 % (2.0-9.0); NEUTROPHILS % (AUTO) 72.9 % (40.0-70.0); PLATELET COUNT (AUTO) 176 K/uL (150-450); RED BLOOD CELL COUNT(AUTO) 3.72 MIL/uL (4.50-5.90); RED CELL DISTRIBUTION WIDTH 17.1 % (11.5-14.5)
[2021-06-19 05:38] LABS: CALCIUM, TOTAL 9.3 mg/dL (8.8-10.5); CREATININE 1.54 mg/dL (0.60-1.30); POTASSIUM 4.1 mmol/L (3.5-5.1)
[2021-06-19 06:36] LABS: GLUCOSE,POINT OF CARE 112 MG/DL (70-110)
[2021-06-19 06:36] LABS: GLUCOSE,POINT OF CARE 102 MG/DL (70-110)
[2021-06-19 08:00] VITALS: BP 149/89
[2021-06-19] MEDS: ETHYL ALCOHOL 62% ANTISEPTIC NASAL INHALANT 0.6 ML AMPUL NASAL SCH ×2 (11:09→21:59)
[2021-06-19] MEDS: ATORVASTATIN CALCIUM 40 MG TABLET PO SCH (11:10)
[2021-06-19] MEDS: CARVEDILOL 12.5 MG TABLET PO SCH ×2 (11:10→21:58)
[2021-06-19] MEDS: ASPIRIN 81 MG DR TABLET PO SCH (11:11)
[2021-06-19] MEDS: PANTOPRAZOLE SODIUM 40 MG DR TABLET PO SCH (11:11)
[2021-06-19] MEDS: TICAGRELOR 90 MG TABLET PO SCH ×2 (11:11→21:58)
[2021-06-19] MEDS: SACUBITRIL/VALSARTAN 24-26 MG TABLET PO SCH ×2 (11:14→21:58)
[2021-06-19 12:00] VITALS: BP 157/88
[2021-06-19 12:07] LABS: GLUCOMETER DEV NAME(LOC) AHU.; GLUCOSE,POINT OF CARE 107 MG/DL (70-110)
[2021-06-19 16:29] VITALS: BP 144/79
[2021-06-19] MEDS: CefTRIAXone 1 GM/DEXTROSE 50 ML IV SCH (17:51)
[2021-06-19] MEDS ORDERED: 0.9% SODIUM CHLORIDE 5 ML NEB SOLUTION NEB ONE (18:56)
[2021-06-19] MEDS: ALBUTEROL SULFATE 2.5 MG/0.5 ML NEB SOLUTION NEB PRN (19:05)
[2021-06-19 20:07] VITALS: BP 149/86
[2021-06-19 20:32] LABS: GLUCOMETER DEV NAME(LOC) 5N.3; GLUCOSE,POINT OF CARE 100 MG/DL (70-110)
[2021-06-19 22:26] LABS: GLUCOMETER DEV NAME(LOC) 5N.1C; GLUCOSE,POINT OF CARE 102 MG/DL (70-110)
[2021-06-20] VITALS (7 sets, daily range): BP systolic 128–171; BP diastolic 64–93
[2021-06-20] MEDS ORDERED: 0.9% SODIUM CHLORIDE 5 ML NEB SOLUTION NEB ONE ×2 (02:23→20:08)
[2021-06-20] MEDS: ALBUTEROL SULFATE 2.5 MG/0.5 ML NEB SOLUTION NEB PRN ×3 (02:24→20:09)
[2021-06-20 06:25] LABS: C-REACTIVE PROTEIN QUANT 13.15 mg/dL (0.00-0.30); CALCIUM, TOTAL 9.6 mg/dL (8.8-10.5); CREATININE 1.36 mg/dL (0.60-1.30); POTASSIUM 3.7 mmol/L (3.5-5.1)
[2021-06-20 08:26] LABS: GLUCOMETER DEV NAME(LOC) 5N.3; GLUCOSE,POINT OF CARE 98 MG/DL (70-110)
[2021-06-20] MEDS: TICAGRELOR 90 MG TABLET PO SCH ×2 (08:28→20:09)
[2021-06-20] MEDS: CARVEDILOL 12.5 MG TABLET PO SCH ×2 (08:28→20:09)
[2021-06-20] MEDS: SACUBITRIL/VALSARTAN 24-26 MG TABLET PO SCH ×2 (08:28→20:09)
[2021-06-20] MEDS: ATORVASTATIN CALCIUM 40 MG TABLET PO SCH (08:28)
[2021-06-20] MEDS: PANTOPRAZOLE SODIUM 40 MG DR TABLET PO SCH (08:28)
[2021-06-20] MEDS: ASPIRIN 81 MG DR TABLET PO SCH (08:29)
[2021-06-20] MEDS: ETHYL ALCOHOL 62% ANTISEPTIC NASAL INHALANT 0.6 ML AMPUL NASAL SCH ×2 (08:30→20:09)
[2021-06-20] MEDS ORDERED: FUROSEMIDE 20 MG/2 ML VIAL IVP STA (10:19)
[2021-06-20] MEDS: IPRATROPIUM BROMIDE 0.5 MG/2.5 ML NEB SOLUTION NEB PRN (10:30)
[2021-06-20 11:52] LABS: GLUCOMETER DEV NAME(LOC) 5N.3; GLUCOSE,POINT OF CARE 141 MG/DL (70-110)
[2021-06-20 17:56] LABS: GLUCOMETER DEV NAME(LOC) 5N.1C; GLUCOSE,POINT OF CARE 121 MG/DL (70-110)
[2021-06-20] MEDS: CefTRIAXone 1 GM/DEXTROSE 50 ML IV SCH (18:30)
[2021-06-21 02:16] LABS: GLUCOMETER DEV NAME(LOC) 5N.1C; GLUCOSE,POINT OF CARE 129 MG/DL (70-110)
[2021-06-21 04:32] VITALS: BP 142/95
[2021-06-21 07:32] VITALS: BP 141/58
[2021-06-21 08:07] LABS: GLUCOMETER DEV NAME(LOC) 5N.1C; GLUCOSE,POINT OF CARE 110 MG/DL (70-110)
[2021-06-21] MEDS: PANTOPRAZOLE SODIUM 40 MG DR TABLET PO SCH (09:00)
[2021-06-21] MEDS: TICAGRELOR 90 MG TABLET PO SCH (09:24)
[2021-06-21] MEDS: CARVEDILOL 12.5 MG TABLET PO SCH (09:24)
[2021-06-21] MEDS: SACUBITRIL/VALSARTAN 24-26 MG TABLET PO SCH (09:25)
[2021-06-21] MEDS: ASPIRIN 81 MG DR TABLET PO SCH (09:25)
[2021-06-21] MEDS: ATORVASTATIN CALCIUM 40 MG TABLET PO SCH (09:25)
[2021-06-21] MEDS: ETHYL ALCOHOL 62% ANTISEPTIC NASAL INHALANT 0.6 ML AMPUL NASAL SCH (09:30)
[2021-06-21] MEDS: IPRATROPIUM BROMIDE 0.5 MG/2.5 ML NEB SOLUTION NEB PRN (11:03)
[2021-06-21] MEDS: ALBUTEROL SULFATE 2.5 MG/0.5 ML NEB SOLUTION NEB PRN (11:03)
[2021-06-21 11:25] VITALS: BP 140/76
[2021-06-21 16:07] LABS: COVID AG,FIA SOURCE NASAL SWAB
[2021-06-21 16:26] LABS: GLUCOMETER DEV NAME(LOC) 5N.1C; GLUCOSE,POINT OF CARE 139 MG/DL (70-110)
[2021-06-21 16:38] VITALS: BP 150/76
[2021-06-21 20:51] LABS: GLUCOMETER DEV NAME(LOC) 5N.1C; GLUCOSE,POINT OF CARE 128 MG/DL (70-110)
== END 2021-06-21 18:40 | DRG 853 ==
LOC: EMS 14:06 → ICU 16:18 → 5S 06-19 15:55
PROVIDERS: ADMIT Internal Medicine; ATTEND Internal Medicine
PROC: 4A023N7 Measurement of Cardiac Sampling and Pressure, Left Heart, Percutaneous Approach (ICD-10-PCS; principal; 2021-06-18)
PROC: 027034Z Dilation of Coronary Artery, One Artery with Drug-eluting Intraluminal Device, Percutaneous Approach (ICD-10-PCS; 2021-06-18)
PROC: 02703ZZ Dilation of Coronary Artery, One Artery, Percutaneous Approach (ICD-10-PCS; 2021-06-18)
PROC: B2111ZZ Fluoroscopy of Multiple Coronary Arteries using Low Osmolar Contrast (ICD-10-PCS; 2021-06-18)
PROC: B2131ZZ Fluoroscopy of Multiple Coronary Artery Bypass Grafts using Low Osmolar Contrast (ICD-10-PCS; 2021-06-18)
PROC: B41F1ZZ Fluoroscopy of Right Lower Extremity Arteries using Low Osmolar Contrast (ICD-10-PCS; 2021-06-18)
DX: A41.50 Gram-negative sepsis, unspecified (principal); I21.4 Non-ST elevation (NSTEMI) myocardial infarction; I50.23 Acute on chronic systolic (congestive) heart failure; N17.9 Acute kidney failure, unspecified; I13.0 Hypertensive heart and chronic kidney disease with heart failure and stage 1 through stage 4 chronic kidney disease, or unspecified chronic kidney disease; G93.40 Encephalopathy, unspecified; B96.89 Other specified bacterial agents as the cause of diseases classified elsewhere; E11.319 Type 2 diabetes mellitus with unspecified diabetic retinopathy without macular edema; E11.40 Type 2 diabetes mellitus with diabetic neuropathy, unspecified; R47.81 Slurred speech; I25.10 Atherosclerotic heart disease of native coronary artery without angina pectoris; E11.22 Type 2 diabetes mellitus with diabetic chronic kidney disease; I25.5 Ischemic cardiomyopathy; J44.9 Chronic obstructive pulmonary disease, unspecified; B96.4 Proteus (mirabilis) (morganii) as the cause of diseases classified elsewhere; I45.9 Conduction disorder, unspecified; K57.30 Diverticulosis of large intestine without perforation or abscess without bleeding; K59.00 Constipation, unspecified; N18.9 Chronic kidney disease, unspecified; N40.0 Benign prostatic hyperplasia without lower urinary tract symptoms; Z20.822 Contact with and (suspected) exposure to COVID-19; Z79.4 Long term (current) use of insulin; E87.6 Hypokalemia; Z82.49 Family history of ischemic heart disease and other diseases of the circulatory system; Z83.3 Family history of diabetes mellitus; Z95.5 Presence of coronary angioplasty implant and graft; Z78.1 Physical restraint status; Z79.899 Other long term (current) drug therapy; Z79.82 Long term (current) use of aspirin
CPT/HCPCS: 51702; 70450; 70486; 70496; 70498; 70551; 71045; 74176; 80048; 80053; 80061; 81001; 82140; 82550; 82962; 83036; 83605; 83880; 84145; 84484; 85025; 85610; 85730; 86140; 86850; 86900; 86901; 87040; 87077; 87081; 87205; 87804; 92526; 92610; 92920; 92928; 93005; 93306; 94640; 97110; 97116; 97162; 97167; 97530; 97535; 99291; G0378; J0131; J0456; J0696; J1644; J1940; J2060; J2250; J2270; J2543; J3010; J3480; J3490; J7030; J7040; J7050; J7060; Q9967; 36415-L1; 36415-TC; J7613; Z7610